=== PATIENT | male | born 1940 | race Caucasian/White ===

== ENCOUNTER 2017-03-18 14:34 | Emergency (ER) ==
[2017-03-18 14:37] VITALS: BP 175/72; TEMP 98.7; BMI 29.5
[2017-03-18] MEDS ORDERED: LIDOCAINE 1 % AMP 5 ML (SUTURES) SUBCUT STA ×2 (14:47)
[2017-03-18] MEDS ORDERED: KEFLEX PO STA ×2 (15:03→15:18)
[2017-03-18] MEDS ORDERED: NORCO 5-325 PO STA (15:03)
--- NOTE | 2017-03-18 15:06 | ED.PDOC ---
General ED Provider: Dr. JOSE KAUFFMAN-ER Chief Complaint: Laceration Stated Complaint: i cut myself wtih the side of the truck Time Seen by Physician: 14:35 Mode of Arrival: Walk-In Information Source: Patient Exam Limitations: No limitations Primary Care Provider: MIGUEL ALAMO Nursing and Triage Documentation Reviewed and Agree: Yes Skin Complaint Exam - Laceration/Abrasion/Hand Complaint/Exam Location of Injury: Right, Wrist Mechanism of Injury: Laceration Onset/Duration: 30min Symptoms Are: Still present Initial Severity: Mild Current Severity: Mild Aggravating: Movement Alleviating: Compression Associated Signs and Symptoms: Denies: Fever, Chills, Erythema, Numbness, Tingling Differential Diagnoses: Laceration, Tendon Laceration Review of Systems - Review Of Systems Constitutional: Reports: No symptoms Eyes: Reports: No symptoms Ears, Nose, Mouth, Throat: Reports: No symptoms Respiratory: Reports: No symptoms Cardiac: Reports: No symptoms GI: Reports: No symptoms : Reports: No symptoms Musculoskeletal: Reports: Muscle pain Skin: Reports: Other Neurological: Reports: No symptoms Endocrine: Reports: No symptoms Hematologic/Lymphatic: Reports: No symptoms All Other Systems: Reviewed and Negative Past Medical History - Past Medical History Previously Healthy: No Endocrine: Reports: None Cardiovascular: Reports: Hypertension Respiratory: Reports: None Hematological: Reports: None Gastrointestinal: Reports: None Genitourinary: Reports: None Neuro/Psych: Reports: None Musculoskeletal: Reports: None Cancer: Reports: None - Surgical History General Surgical History: Reports: None - Family History Family History: Reports: None - Social History Smoking Status: Never smoker Hx Substance Use: No Alcohol Screening: None Lives: With family Physical Exam - Physical Exam Appearance: Well-appearing, No pain distress, Well-nourished Pain Distress: Mild Eyes: JORDIN ENT: Ears normal, Nose normal, Oropharynx normal Neck: Supple Respiratory: Airway patent, Breath sounds clear, Breath sounds equal, Respirations nonlabored Cardiovascular: RRR, Pulses normal, No rub, No murmur GI/: Soft, Nontender, No masses, Bowel sounds normal, No Organomegaly Musculoskeletal: Normal strength Skin: Warm, Dry, Normal color Neurological: Sensation intact, Motor intact, Reflexes intact, Cranial nerves intact, Alert, Oriented Psychiatric: Affect appropriate, Mood appropriate Procedures - Laceration/Wound Repair No standard instances Wound Description: Linear Wound Length (cm): 10cm right forearm Wound Explored: Clean Wound Irrigated: Yes Wound Prep: Sarah Anesthesia: Lidocaine Wound Repaired With: [employer] Number of Singh: 26 Layer Closure?: No Sterile Dressing Applied?: Yes Splint Applied?: No Sling Applied?: No Re-Evaluation - Re-Evaluation Time of Re-Evaluation: 15:06 Status: Improved (no bleeding--neurovascular intact--no obvious tendon involvement) Vital Signs Stable: Yes Pain Level: 1 Appearance: NAD Lungs: Clear Skin: Warm and Dry Neuro: Alert and Oriented X3 CV: RRR Additional Comments: he is flexing and extending at wrist well--sensation and pulses intact Critical Care Note - Critical Care Note Total Time (mins): 0 Course - Course Orders, Labs, Meds: Orders Category Date Time Status Cephalexin [Keflex] MEDS 03/18/17 15:03 Stat 500 mg PO ONCE STA Hydrocodone Bit/Acetaminophen [[place] 5-325] MEDS 03/18/17 15:03 Stat 1 tab PO ONCE STA Lidocaine HCl/Pf [Lidocaine 1 % Amp 5 ml (Sutures)] MEDS 03/18/17 14:47 Discontinued 5 ml SUBCUT ONCE STA Lidocaine HCl/Pf [Lidocaine 1 % Amp 5 ml (Sutures)] MEDS 03/18/17 14:47 Discontinued 5 ml SUBCUT ONCE STA Medications Generic Name Dose Route Start Last Admin Trade Name Freq PRN Reason Stop Dose Admin Acetaminophen/Hydrocodone Bitart 1 tab 03/18/17 15:03 [place] 5-325 PO 03/18/17 15:04 ONCE STA Cephalexin 500 mg 03/18/17 15:03 Keflex PO 03/18/17 15:04 ONCE STA Discontinued Medications Generic Name Dose Route Start Last Admin Trade Name Freq PRN Reason Stop Dose Admin Lidocaine HCl 5 ml 03/18/17 14:47 Lidocaine 1 % Amp 5 Ml (Sutures) SUBCUT 03/18/17 14:48 ONCE STA Lidocaine HCl 5 ml 03/18/17 14:47 Lidocaine 1 % Amp 5 Ml (Sutures) SUBCUT 03/18/17 14:48 ONCE STA Vital Signs: Temp Pulse Resp BP Pulse Ox 03/18/17 14:34 98.7 F 73 18 175/72 H 93 L Departure - Departure Time of Disposition: 15:07 Disposition: HOME SELF-CARE Discharge Problem: Laceration - injury Instructions: Laceration (ED), Staple Care (ED) Condition: Good Pt referred to PMD for follow-up: Yes Additional Instructions: wound care--singh out in 7 days--sooner if any infection--norco 5mg q 4hrs prn pain #15--keflex 500mg bid x 7 days Allergies/Adverse Reactions: Allergies acetaminophen [From Esgic] Adverse Reaction (Verified 12/08/15 09:33) atorvastatin [From Lipitor] Adverse Reaction (Verified 12/08/15 09:33) butalbital [From Esgic] Adverse Reaction (Verified 12/08/15 09:33) caffeine [From Esgic] Adverse Reaction (Verified 12/08/15 09:33) diazepam [From Valium] Adverse Reaction (Verified 12/08/15 09:33) etodolac [From Lodine] Adverse Reaction (Verified 12/08/15 09:33) naproxen Adverse Reaction (Verified 12/08/15 09:33) Home Medications: Ambulatory Orders Alprazolam [Xanax] 0.5 mg PO BID 12/08/15 Baclofen 10 mg PO BID 12/08/15 Lovastatin 40 mg PO DAILY 12/08/15 Prasugrel HCl [Effient] 10 mg PO DAILY 12/08/15 Sitagliptin Phosphate [Januvia] 50 mg PO DAILY 12/08/15 Tiotropium [place] [Spiriva] 1 cap INH DAILY 12/08/15 Disposition Discussed With: Patient, Family
== END 2017-03-18 15:33 | disposition home or self-care (01) ==
LOC: ED 14:34
DX: S51.811A Laceration without foreign body of right forearm, initial encounter (principal); W45.8XXA Other foreign body or object entering through skin, initial encounter
CPT/HCPCS: 99283